=== PATIENT | male | born 1980 | race Caucasian/White ===

== ENCOUNTER 2019-06-24 02:08 | Emergency (ER) | payer BC, OTHER ==
[2019-06-24] MEDS ORDERED: ASPIRIN 81 MG CHEWABLE TABLET ONE (03:00)
[2019-06-24] MEDS ORDERED: MAGNE/ALUM HYDROXD 30 ML UCUP ONE (03:00)
[2019-06-24] MEDS ORDERED: LIDOCAINE VISCOUS 2% SOLN 15 ML UDC ONE (03:00)
[2019-06-24] MEDS ORDERED: METOPROLOL TAR 50 MG TAB ONE (03:00)
[2019-06-24] MEDS ORDERED: PANTOPRAZOLE 40 MG INJ ONE (03:00)
[2019-06-24 03:24] LABS: Protime INR 1.01
[2019-06-24 03:35] LABS: Absolute Lymphocytes (CBC) 1.4 K/uL (0.7-4.9); Basophils % 0.3 % (0-1.3); Hematocrit 49.7 % (39.6-49.0); Lymphocytes % 23.4 % (15.3-44.8); MPV 7.4 fL (7.6-11.3); RBC Red Blood Cell Count 5.51 M/uL (4.33-5.43)
[2019-06-24 03:38] LABS: ALT/SGPT 59 U/L (12-78); AST/SGOT 37 U/L (15-37); Albumin 3.6 g/dL (3.4-5.0); Alkaline Phosphatase 68 U/L (45-117); BUN Blood Urea Nitrogen 9 mg/dL (7-18); Bicarbonate 27 mmol/L (21-32); Bilirubin Direct 0.3 mg/dL (0-0.2); Bilirubin Total 1.3 mg/dL (0.2-1.0); Glucose Level 109 mg/dL (74-106); Lipase 240 U/L (73-393); Potassium 3.5 mmol/L (3.5-5.1); Protein, Total 7.1 g/dL (6.4-8.2); Sodium Level 140 mmol/L (136-145); Troponin (Emerg Dept Use Only) < 0.02 ng/mL (0.0-0.045)
[2019-06-24 03:40] LABS: NT PRO-BNP < 5 pg/mL (<125)
[2019-06-24] MEDS ORDERED: METOPROLOL TARTRATE 5 MG/5 ML INJ IV ONE (04:50)
[2019-06-24 05:30] LABS: Urine Blood NEGATIVE (NEG); Urine Glucose NEGATIVE (NEG); Urine Protein NEGATIVE (NEG); Urine Specific Gravity 1.025 (1.005-1.030)
--- NOTE | 2019-06-24 05:43 | ER ---
Nurse's Notes [facility] Name: Jose Ga Age: 38 yrs Sex: Male : 1980 Arrival Date: 06/24/2019 Time: 02:26 Bed 15 Private MD: Diagnosis: Gastro-esophageal reflux disease with esophagitis;Essential (primary) hypertension;Chest pain, unspecified;Atelectasis;Pleural effusion in conditions classified elsewhere-small right Presentation: 06/24 02:31 Presenting complaint: Patient states: Reports epigastric pain, dry heaving, indigestion ea and 15 lb wt loss in last 6 weeks. Pt reports he saw his PCP and was prescribed lansoprazole. Pt reports he has had discomfort in the past but today symptoms worsened. Transition of care: patient was not received from another setting of care. Onset of symptoms was June 24, 2019. Risk Assessment: Do you want to hurt yourself or someone else? Patient reports no desire to harm self or others. Initial Sepsis Screen: Does the patient meet any 2 criteria? No. Patient's initial sepsis screen is negative. Does the patient have a suspected source of infection? No. Patient's initial sepsis screen is negative. Care prior to arrival: None. 02:31 Method Of Arrival: Ambulatory ea 02:31 Acuity: JANENE 3 ea Triage Assessment: 02:40 General: Appears in no apparent distress. Behavior is calm, cooperative, appropriate ea for age. Pain: Complains of pain in epigastric area Pain currently is 6 out of 10 on a pain scale. Neuro: Level of Consciousness is awake, alert, obeys commands, Oriented to person, place, time, situation. Cardiovascular: Patient's skin is warm and dry. Respiratory: Airway is patent Respiratory effort is even, unlabored, Respiratory pattern is regular, symmetrical. Derm: Skin is dry, Skin is flushed, Skin temperature is warm. Historical: - Allergies: 02:39 No Known Allergies; ea - Home Meds: 02:38 lansoprazole 30 mg oral cpDR 1 cap once daily [Active]; ea 02:39 losartan 50 mg oral tab [Active]; Keren 180 mg Oral tab [Active]; ea - PMHx: 02:39 Hypertension; ea - PSHx: 02:39 None; ea - Immunization history:: Adult Immunizations up to date. - Social history:: Smoking status: Patient/guardian denies using tobacco. - Ebola Screening: : No symptoms or risks identified at this time. - Family history:: not pertinent. Screenin:35 Abuse screen: Denies threats or abuse. Nutritional screening: No deficits noted. ea Tuberculosis screening: No symptoms or risk factors identified. Fall Risk None identified. Assessment: 03:11 General: Appears in no apparent distress. Behavior is calm, cooperative, appropriate wh for age. Pain: Complains of pain in epigastric area Pain does not radiate. Pain currently is 8 out of 10 on a pain scale. Quality of pain is described as burning, Pain began gradually. Neuro: Level of Consciousness is awake, alert, obeys commands, Oriented to person, place, time, situation, Appropriate for age. Cardiovascular: Heart tones S1 S2 Rhythm is regular. Respiratory: Airway is patent Respiratory effort is even, unlabored, Respiratory pattern is regular, symmetrical, Breath sounds are clear bilaterally. GI: Abdomen is flat, non-distended. : No signs and/or symptoms were reported regarding the genitourinary system. EENT: No signs and/or symptoms were reported regarding the EENT system. Derm: Skin is intact, is healthy with good turgor, Skin is pink, warm \T\ dry. normal. Musculoskeletal: Circulation, motion, and sensation intact. 04:12 Reassessment: Patient appears in no apparent distress at this time. No changes from previously documented assessment. Patient and/or family updated on plan of care and expected duration. Pain level reassessed. Patient is alert, oriented x 3, equal unlabored respirations, skin warm/dry/pink. 05:17 Reassessment: Patient appears in no apparent distress at this time. No changes from previously documented assessment. Patient and/or family updated on plan of care and expected duration. Pain level reassessed. Patient is alert, oriented x 3, equal unlabored respirations, skin warm/dry/pink. Dr Aranda at bedside explaining POC. 06:14 Reassessment: Patient appears in no apparent distress at this time. No changes from previously documented assessment. Patient and/or family updated on plan of care and expected duration. Pain level reassessed. Patient is alert, oriented x 3, equal unlabored respirations, skin warm/dry/pink. Pt already DC awaiting official reading of Chest CTA. Vital Signs: 02:34 BP 144 / 111; Pulse 88; Resp 18; Temp 98.6; Pulse Ox 98% ; Weight 99.79 kg; Height 6 ea ft. 1 in. (185.42 cm); 03:14 BP 132 / 106; Pulse 78; Resp 16; Pulse Ox 98% on R/A; wh 04:00 BP 140 / 102; Pulse 67; Resp 18; Pulse Ox 98% on R/A; wh 05:18 BP 133 / 101; Pulse 62; Resp 18; Pulse Ox 97% on R/A; wh 06:16 BP 140 / 93; Pulse 72; Resp 18; Pulse Ox 99% on R/A; wh 02:34 Body Mass Index 29.03 (99.79 kg, 185.42 cm) ea ED Course: 02:26 Patient arrived in ED. fc 02:28 Yamil Aranda MD is Attending Physician. [facility] 02:34 Laly Nathan is Primary Nurse. 02:34 Triage completed. ea 02:36 Patient maintains SpO2 saturation greater than 95% on room air. ea 02:36 Arm band placed on right wrist. Patient placed in an exam room, on a stretcher, on ea pulse oximetry. 02:36 Patient has correct armband on for positive identification. Placed in gown. Bed in low ea position. Call light in reach. Side rails up X 1. hall monitor on. Pulse ox on. NIBP on. 02:50 Inserted saline lock: 20 gauge in right antecubital area, using aseptic technique. Blood collected. 04:34 XRAY Chest (1 view) In Process Unspecified. EDMS 05:41 Vanita Meng MD is Referral Physician. kishore 05:41 Gio Cook MD is Referral Physician. kishore 05:59 CT Chest For PE Angio In Process Unspecified. EDMS 06:15 No provider procedures requiring assistance completed. IV discontinued, intact, bleeding controlled, No redness/swelling at site. 06:24 Galo Garcia MD is Referral Physician. [facility] Administered Medications: 03:04 Drug: Lopressor (metoprolol TARTRATE) 50 mg Route: PO; 03:46 Follow up: Response: No adverse reaction 03:06 Drug: Aspirin Chewable Tablet 162 mg Route: PO; 03:45 Follow up: Response: No adverse reaction 03:08 Drug: ProTONIX 40 mg Route: IVP; Site: right antecubital; 03:45 Follow up: Response: No adverse reaction 03:10 Drug: GI Cocktail without - (Maalox Suspension 30 ml, Lidocaine Liquid 2 % 15 wh ml) Route: PO; 03:45 Follow up: Response: No adverse reaction 04:56 Drug: Lopressor 2.5 mg Route: IVP; Site: right antecubital; 06:00 Follow up: Response: No adverse reaction 06:00 Not Given (Duplicate Order): Lopressor 2.5 mg IVP once; Hold for SBP <100 or HR <60. Outcome: 05:41 Discharge ordered by . kishore 06:15 Discharged to home ambulatory, with family. 06:15 Condition: stable 06:15 Discharge instructions given to patient, family, Instructed on discharge instructions, follow up and referral plans. medication usage, POC Non Specific Chest pain and GERD Demonstrated understanding of instructions, follow-up care, medications, POC Prescriptions given X 3. 06:32 Patient left the ED. bb Signatures: Dispatcher [employer] EDMS Yamil Aranda MD MD cha Chretien, Felicia, RN RN Keira Judge RN RN Ritu Valle, RN RN Laly Smith Corrections: (The following items were deleted from the chart) 05:18 05:17 Reassessment: Patient appears in no apparent distress at this time. No changes wh from previously documented assessment. Patient and/or family updated on plan of care and expected duration. Pain level reassessed. Patient is alert, oriented x 3, equal unlabored respirations, skin warm/dry/pink. wh
--- NOTE | 2019-06-24 05:43 | EDPHYS ---
Physician Documentation [facility] Name: Jose Ga Age: 38 yrs Sex: Male : 1980 Arrival Date: 06/24/2019 Time: 02:26 Bed 15 Private MD: HERB Physician Yamil Aranda HPI: 06/24 02:39 This 38 yrs old Male presents to ER via Ambulatory with complaints of Chest kishore Pain. 02:39 The patient or guardian reports chest pain that is located primarily in the substernal kishore area. The pain does not radiate. Associated signs and symptoms: The patient has no apparent associated signs or symptoms. The chest pain is described as burning. Duration: The patient or guardian reports a single episode, that is still ongoing. Modifying factors: The symptoms are alleviated by antacids, rest, the symptoms are aggravated by movement. Severity of pain: At its worst the pain was moderate in the emergency department the pain is unchanged. The patient has experienced similar episodes in the past. Historical: - Allergies: 02:39 No Known Allergies; ea - Home Meds: 02:38 lansoprazole 30 mg oral cpDR 1 cap once daily [Active]; ea 02:39 losartan 50 mg oral tab [Active]; Keren 180 mg Oral tab [Active]; ea - PMHx: 02:39 Hypertension; ea - PSHx: 02:39 None; ea - Immunization history:: Adult Immunizations up to date. - Social history:: Smoking status: Patient/guardian denies using tobacco. - Ebola Screening: : No symptoms or risks identified at this time. - Family history:: not pertinent. ROS: 02:39 Constitutional: Negative for fever, chills, and weight loss, Eyes: Negative for injury, kishore pain, redness, and discharge, ENT: Negative for injury, pain, and discharge, Neck: Negative for injury, pain, and swelling, Respiratory: Negative for shortness of breath, cough, wheezing, and pleuritic chest pain, Abdomen/GI: Negative for abdominal pain, nausea, vomiting, diarrhea, and constipation, Back: Negative for injury and pain, : Negative for injury, bleeding, discharge, and swelling, MS/Extremity: Negative for injury and deformity, Skin: Negative for injury, rash, and discoloration, Neuro: Negative for headache, weakness, numbness, tingling, and seizure, Psych: Negative for depression, anxiety, suicide ideation, homicidal ideation, and hallucinations, Allergy/Immunology: Negative for hives, rash, and allergies, Endocrine: Negative for neck swelling, polydipsia, polyuria, polyphagia, and marked weight changes, Hematologic/Lymphatic: Negative for swollen nodes, abnormal bleeding, and unusual bruising. 02:39 Cardiovascular: Positive for chest pain, of the chest. Exam: 02:39 Constitutional: This is a well developed, well nourished patient who is awake, alert, kishore and in no acute distress. Head/Face: Normocephalic, atraumatic. Eyes: Pupils equal round and reactive to light, extra-ocular motions intact. Lids and lashes normal. Conjunctiva and sclera are non-icteric and not injected. Cornea within normal limits. Periorbital areas with no swelling, redness, or edema. ENT: Nares patent. No nasal discharge, no septal abnormalities noted. Tympanic membranes are normal and external auditory canals are clear. Oropharynx with no redness, swelling, or masses, exudates, or evidence of obstruction, uvula midline. Mucous membranes moist. Neck: Trachea midline, no thyromegaly or masses palpated, and no cervical lymphadenopathy. Supple, full range of motion without nuchal rigidity, or vertebral point tenderness. No Meningismus. Chest/axilla: Normal chest wall appearance and motion. Nontender with no deformity. No lesions are appreciated. Cardiovascular: Regular rate and rhythm with a normal S1 and S2. No gallops, murmurs, or rubs. Normal PMI, no JVD. No pulse deficits. Respiratory: Lungs have equal breath sounds bilaterally, clear to auscultation and percussion. No rales, rhonchi or wheezes noted. No increased work of breathing, no retractions or nasal flaring. Abdomen/GI: Soft, non-tender, with normal bowel sounds. No distension or tympany. No guarding or rebound. No evidence of tenderness throughout. Back: No spinal tenderness. No costovertebral tenderness. Full range of motion. Male : Normal genitalia with no discharge or lesions. Skin: Warm, dry with normal turgor. Normal color with no rashes, no lesions, and no evidence of cellulitis. MS/ Extremity: Pulses equal, no cyanosis. Neurovascular intact. Full, normal range of motion. Neuro: Awake and alert, GCS 15, oriented to person, place, time, and situation. Cranial nerves II-XII grossly intact. Motor strength 5/5 in all extremities. Sensory grossly intact. Cerebellar exam normal. Normal gait. Psych: Awake, alert, with orientation to person, place and time. Behavior, mood, and affect are within normal limits. 02:39 Musculoskeletal/extremity: DVT Exam: No signs of deep vein thrombosis. no pain, no swelling, no tenderness, negative Homans' sign noted on exam, no appreciated bluish discoloration, no erythema, no increased warmth. Vital Signs: 02:34 BP 144 / 111; Pulse 88; Resp 18; Temp 98.6; Pulse Ox 98% ; Weight 99.79 kg; Height 6 ea ft. 1 in. (185.42 cm); 03:14 BP 132 / 106; Pulse 78; Resp 16; Pulse Ox 98% on R/A; wh 04:00 BP 140 / 102; Pulse 67; Resp 18; Pulse Ox 98% on R/A; wh 05:18 BP 133 / 101; Pulse 62; Resp 18; Pulse Ox 97% on R/A; wh 06:16 BP 140 / 93; Pulse 72; Resp 18; Pulse Ox 99% on R/A; wh 02:34 Body Mass Index 29.03 (99.79 kg, 185.42 cm) ea MDM: 02:28 Patient medically screened. [facility] 02:41 Data reviewed: vital signs, nurses notes, lab test result(s), EKG, radiologic studies, kishore plain films. 06/24 02:39 Order name: Basic Metabolic Panel; Complete Time: 04:35 [facility] 06/24 02:39 Order name: CBC with Diff; Complete Time: 04:35 [facility] 06/24 02:39 Order name: LFT's; Complete Time: 04:35 [facility] 06/24 02:39 Order name: Magnesium; Complete Time: 04:35 [facility] 06/24 02:39 Order name: NT PRO-BNP; Complete Time: 04:35 [facility] 06/24 02:39 Order name: PT-INR; Complete Time: 04:35 [facility] 06/24 02:39 Order name: Troponin (emerg Dept Use Only); Complete Time: 04:35 [facility] 06/24 02:39 Order name: XRAY Chest (1 view) [facility] 06/24 02:39 Order name: Lipase; Complete Time: 04:35 [facility] 06/24 04:41 Order name: Troponin (emerg Dept Use Only); Complete Time: 05:39 [facility] 06/24 05:14 Order name: Urine Dipstick--Ancillary (enter results); Complete Time: 05:39 ar5 06/24 05:16 Order name: CT Chest For PE Angio [facility] 06/24 02:39 Order name: EKG; Complete Time: 03:00 [facility] 06/24 02:39 Order name: Cardiac monitoring; Complete Time: 02:42 [facility] 06/24 02:39 Order name: EKG - Nurse/Tech; Complete Time: 02:42 [facility] 06/24 02:39 Order name: IV Saline Lock; Complete Time: 03:11 [facility] 06/24 02:39 Order name: Labs collected and sent; Complete Time: 03:11 [facility] 06/24 02:39 Order name: O2 Per Protocol; Complete Time: 02:42 [facility] 06/24 02:39 Order name: O2 Sat Monitoring; Complete Time: 02:42 [facility] 06/24 02:39 Order name: Urine Dipstick-Ancillary (obtain specimen); Complete Time: 05:17 [facility] Administered Medications: 03:04 Drug: Lopressor (metoprolol TARTRATE) 50 mg Route: PO; 03:46 Follow up: Response: No adverse reaction 03:06 Drug: Aspirin Chewable Tablet 162 mg Route: PO; 03:45 Follow up: Response: No adverse reaction 03:08 Drug: ProTONIX 40 mg Route: IVP; Site: right antecubital; 03:45 Follow up: Response: No adverse reaction 03:10 Drug: GI Cocktail without - (Maalox Suspension 30 ml, Lidocaine Liquid 2 % 15 wh ml) Route: PO; 03:45 Follow up: Response: No adverse reaction 04:56 Drug: Lopressor 2.5 mg Route: IVP; Site: right antecubital; 06:00 Follow up: Response: No adverse reaction 06:00 Not Given (Duplicate Order): Lopressor 2.5 mg IVP once; Hold for SBP <100 or HR <60. Disposition: 06/24/19 05:41 Discharged to Home. Impression: Gastro-esophageal reflux disease with esophagitis, Essential (primary) hypertension, Chest pain, unspecified, Atelectasis, Pleural effusion in conditions classified elsewhere - small right . - Condition is Stable. - Discharge Instructions: Atelectasis, Adult, Nonspecific Chest Pain, Food Choices for Gastroesophageal Reflux Disease, Adult, Esophagitis, Gastroesophageal Reflux Disease, Adult, Hypertension, Pleural Effusion, Nonspecific Chest Pain, [id number], Hypertension, [id number]-[id number], How to Take Your Blood Pressure, [id number], Managing Your Hypertension. - Prescriptions for Carafate 1 gram Oral Tablet - take 1 tablet by ORAL route 4 times per day take on an empty stomach, beginning on waking and last dose at bedtime; 100 tablet. Protonix 40 mg Oral Tablet - take 1 tablet by ORAL route once daily; 30 tablet. Toprol XL 25 mg Oral Tablet - take 1 tablet by ORAL route once daily; 20 tablet. - Medication Reconciliation Form, Thank You Letter, Antibiotic Education, Prescription Opioid Use, Work release form, Family Work Release form. - Follow up: Private Physician; When: Today; Reason: Recheck today's complaints, Continuance of care, Re-evaluation by your physician. Follow up: Vanita Meng; When: Today; Reason: Recheck today's complaints, Re-evaluation by your physician. Follow up: Gio Cook; When: Today; Reason: Recheck today's complaints, Re-evaluation by your physician. Follow up: Galo Garcia MD; When: 2 - 3 days; Reason: Recheck today's complaints, Re-evaluation by your physician. - Problem is new. - Symptoms have improved. Signatures: Dispatcher [employer] EDUT Yamil Aranda MD MD cha Ballard, Brenda, RN RN Ritu Valle RN RN Laly Smith Corrections: (The following items were deleted from the chart) 06:25 05:41 06/24/2019 05:41 Discharged to Home. Impression: Gastro-esophageal reflux disease kishore with esophagitis; Essential (primary) hypertension; Chest pain, unspecified. Condition is Stable. Discharge Instructions: Nonspecific Chest Pain, Food Choices for Gastroesophageal Reflux Disease, Adult, Esophagitis, Gastroesophageal Reflux Disease, Adult, Hypertension, Nonspecific Chest Pain, [id number]-[id number], Hypertension, Eiav-wf-[id number], How to Take Your Blood Pressure, Wnpv-[id number], Managing Your Hypertension. Prescriptions for Carafate 1 gram Oral Tablet - take 1 tablet by ORAL route 4 times per day take on an empty stomach, beginning on waking and last dose at bedtime; 100 tablet, Protonix 40 mg Oral Tablet - take 1 tablet by ORAL route once daily; 30 tablet, Toprol XL 25 mg Oral Tablet - take 1 tablet by ORAL route once daily; 20 tablet. and Forms are Medication Reconciliation Form, Thank You Letter, Antibiotic Education, Prescription Opioid Use. Follow up: Private Physician; When: Today; Reason: Recheck today's complaints, Continuance of care, Re-evaluation by your physician. Follow up: Vanita Meng; When: Today; Reason: Recheck today's complaints, Re-evaluation by your physician. Follow up: Gio Cook; When: Today; Reason: Recheck today's complaints, Re-evaluation by your physician. Problem is new. Symptoms have improved. [facility] 06:32 06:25 06/24/2019 05:41 Discharged to Home. Impression: Gastro-esophageal reflux disease bb with esophagitis; Essential (primary) hypertension; Chest pain, unspecified; Atelectasis; Pleural effusion in conditions classified elsewhere - small right . Condition is Stable. Discharge Instructions: Nonspecific Chest Pain, Food Choices for Gastroesophageal Reflux Disease, Adult, Esophagitis, Gastroesophageal Reflux Disease, Adult, Hypertension, Nonspecific Chest Pain, [id number], Hypertension, Afrn-ro-Umkh, How to Take Your Blood Pressure, Dzga-xn-Ghgk, Managing Your Hypertension. Prescriptions for Carafate 1 gram Oral Tablet - take 1 tablet by ORAL route 4 times per day take on an empty stomach, beginning on waking and last dose at bedtime; 100 tablet, Protonix 40 mg Oral Tablet - take 1 tablet by ORAL route once daily; 30 tablet, Toprol XL 25 mg Oral Tablet - take 1 tablet by ORAL route once daily; 20 tablet. and Forms are Medication Reconciliation Form, Thank You Letter, Antibiotic Education, Prescription Opioid Use, Work release form, Family Work Release. Follow up: Private Physician; When: Today; Reason: Recheck today's complaints, Continuance of care, Re-evaluation by your physician. Follow up: Vanita Meng; When: Today; Reason: Recheck today's complaints, Re-evaluation by your physician. Follow up: Gio Cook; When: Today; Reason: Recheck today's complaints, Re-evaluation by your physician. Follow up: Galo Garcia; When: 2 - 3 days; Reason: Recheck today's complaints, Re-evaluation by your physician. Problem is new. Symptoms have improved. kishore
[2019-06-24 06:39] VITALS: TEMP 98.6
[2019-06-24 06:43] VITALS: BP 140/93; O2SAT 99
--- NOTE | 2019-06-24 08:16 | RAD REPORT ---
EXAM DESCRIPTION: Dagoberto Single View06/24/2019 4:34 am CLINICAL HISTORY: Chest pain COMPARISON: none FINDINGS: The lungs appear clear of acute infiltrate. The heart is normal size . Minimal right pleural effusion
--- NOTE | 2019-06-24 10:23 | RAD REPORT ---
EXAM DESCRIPTION: CT - Chest For Pe Angio - 06/24/2019 6:49 am CLINICAL HISTORY: The patient is 38 years old and is Male; CHEST PAIN TECHNIQUE: Axial computed tomographic angiography images of the chest with intravenous contrast. S agittal and coronal reformatted images were created and reviewed. This CT exam was performed using one or more of the following dose reduction techniques: automated exposure control, adjustment of t he mA and/or kV according to patient size, and/or use of iterative reconstruction technique. MIP reconstructed images were created and reviewed. COMPARISON: No relevant prior studies available. FINDINGS: ARTIFACTS: The exam is suboptimal secondary to motion artifact. PULMONARY ARTERIES: There are no obvious filling defects identified within the pulmonary arterie s to suggest pulmonary embolism. AORTA: No acute findings. No thoracic aortic aneurysm. LUNGS: Minimal right basilar atelectasis is present. No mass. PLEURAL SPACE: A small right pleural effusion is present. No pneumothorax. HEART: Unremarkable. No cardiomegaly. No significant pericardial effusion. No evidence of RV dysfunction. BONES/JOINTS: No acute fracture. No dislocation. SOFT TISSUES: Unremarkable. LYMPH NODES: Unremarkable. No enlarged lymph nodes. IMPRESSION: 1. No evidence of pulmonary embolism. 2. Small right pleural effusion with associated atelectasis. Electronically signed by: Yamileth Jo MD 06/24/2019 6:09 AM [facility] Due to temporary technical issues with the PACS/Fluency reporting system, reports are being signed by the in house radiologist as a courtesy to ensure prompt reporting. The interpreting radiologist is f ully responsible for the content of the report.
--- NOTE | 2019-06-24 11:57 | EKG ---
Test Date: 2019-06-24 Test Time: 02:23:36 Apprentice Painter Brush: ROGERS MEASUREMENT RESULTS: Intervals: Rate: 86 IA: 178 QRSD: 114 QT: 374 QTc: 447 [place]: P: 51 IA: 178 QRS: 78 T: -4 INTERPRETIVE STATEMENTS: Normal sinus rhythm Possible Left atrial enlargement Possible Inferior infarct, age undetermined Cannot rule out Anterior infarct, age undetermined Abnormal ECG No previous ECG available for comparison Electronically Signed On 06-24-19 11:56:34 DIRECTOR OF MANAGED CARE by Adan Jackson
== END 2019-06-24 06:32 | disposition home or self-care (01) ==
LOC: ER 02:08
DX: K21.0 Gastro-esophageal reflux disease with esophagitis (principal); I10 Essential (primary) hypertension; J91.8 Pleural effusion in other conditions classified elsewhere
CPT/HCPCS: 93005; 85025; 80048; 36415; 83735; 85610; 80076; 81003; 84484 ×2; 83690; 83880; 71275; 71045; 96375; 96374; 99285; Q9967; C9113